=== PATIENT | male | born 1955 | race African-American/Black ===

== ENCOUNTER 2017-07-15 23:21 | Emergency (ER) | payer OTHER ==
[~2017-07-15] VITALS: Ht 172.7 cm; Wt 75.7 kg
[~2017-07-15 23:21] MED LIST: BENA1TAB18 PO; WARF1TAB47
--- NOTE | 2017-07-15 23:25 | NUR ---
To bed 2 a 62 yo male patient bb ra; "pace maker is not working." Patient is aaox3, no s/s of acute distress. Breathing even and unlabored. Placed on cardiac and vs monitoring. Patient denies any chest pain/pressure. No SOB. Denies any discomfort. Dr Owens at bedside to [facility].
--- NOTE | 2017-07-15 23:32 | NUR ---
eloy mathias; girlfriend; [phone] per girl medical [phone] juan nichols
--- NOTE | 2017-07-16 01:02 | NUR ---
IV removed. Catheter intact and site benign. Pressure and 4x4 applied to site. No bleeding noted. Patient discharged to home in stable condition. Written and verbal after care instructions given. Patient verbalizes understanding of instruction. Patient is ambulatory with steady gait, picked up no further complaints.
[2017-07-16 01:12] VITALS: BP 134/84
== END 2017-07-16 01:13 | disposition home or self-care (01) ==
LOC: ER 23:23
DX: S80.12XA Contusion of left lower leg, initial encounter (principal); F17.200 Nicotine dependence, unspecified, uncomplicated; I10 Essential (primary) hypertension; Z79.01 Long term (current) use of anticoagulants; Z86.73 Personal history of transient ischemic attack (TIA), and cerebral infarction without residual deficits; Z95.0 Presence of cardiac pacemaker; X58.XXXA Exposure to other specified factors, initial encounter; Y93.89 Activity, other specified; Y92.89 Other specified places as the place of occurrence of the external cause; Y99.9 Unspecified external cause status
CPT/HCPCS: 99283; A4606; Z7610

== ENCOUNTER 2019-10-31 05:38 | Emergency (ER) | payer MEDICARE, OTHER ==
[~2019-10-31] VITALS: Ht 172.7 cm; Wt 81.6 kg
--- NOTE | 2019-10-31 05:40 | NUR ---
PT BIBA FROM HOME FOR GEN. WEAKNESS, DIZZINESS WT COUGH AND CONGESTION. ALERT AND AWAKE, ABLE TO MAKE NEEDS KNOWN. ON ROOM AIR WT NO ACUTE DISTRESS. PLACED ON DAIRY SCIENCE TEACHER. SAFETY PRECAUTION NOTED. AWAITING ORDERS.
--- NOTE | 2019-10-31 06:00 | NUR ---
LEFT LOWER FOREARM GAUGE 18 INSERTED WT GOOD BLOOD RETURN. BLOOD DRAWN.
[2019-10-31] MEDS ORDERED: hydrALAZINE HCL IV 20 MG VIAL ONE ×2 (06:24→07:41)
[2019-10-31] MEDS ORDERED: hydrALAZINE HCL IV 20 MG VIAL IV ONE ×2 (06:30→08:00)
--- NOTE | 2019-10-31 06:30 | NUR ---
HYDRALAZINE GIVEN ORDERED FOR ELEVATED BP. WILL CONTINUE TO MONITOR.
[2019-10-31 06:31] LABS: BASOPHILS % (AUTO) 0.8 % (0.0-2.0); EOSINOPHILS % (AUTO) 1.1 % (0.0-6.0); HEMATOCRIT 46 % (39-51); HEMOGLOBIN 15.4 g/dL (13.5-17.5); LYMPHOCYTES # (AUTO) 1.2 /CMM (0.8-4.8); LYMPHOCYTES % (AUTO) 27.7 % (20.0-44.0); MEAN CORPUSCULAR HGB CONC 34 g/dl (31.0-36.0); MEAN CORPUSCULAR VOLUME 95 fL (80-96); MONOCYTES # (AUTO) 0.3 /CMM (0.1-1.30); MONOCYTES % (AUTO) 7.5 % (2.0-12.0); NEUTROPHILS # (AUTO) 2.6 /CMM (1.8-8.9); NEUTROPHILS % (AUTO) 62.9 % (43.0-81.0); PLATELET COUNT (AUTO) 150 /CMM (150-450); RED BLOOD CELL COUNT(AUTO) 4.82 MIL/uL (4.5-6.0); WHITE BLOOD COUNT (AUTO) 4.2 K/uL (4.3-11.0)
--- NOTE | 2019-10-31 06:32 | NUR ---
RAPID INFLUENZA SENT TO LAB.
[2019-10-31 06:37] LABS: CALCIUM, SERUM 8.1 mg/dL (8.5-10.1); CARBON DIOXIDE 23 mmol/L (21-32); CHLORIDE 107 mmol/L (98-107); CREATININE 1.2 mg/dL (0.6-1.3); GLUCOSE 107 mg/dL (74-106); POTASSIUM 3.5 mmol/L (3.5-5.1); SODIUM SERUM 139 mmol/L (136-145); UREA NITROGEN, BLOOD 14 mg/dL (7-18)
[2019-10-31] MEDS ORDERED: LIDOCAINE 2% JEL UROJET 10 ML MM ONE ×2 (06:44→07:30)
[2019-10-31 06:46] LABS: BILIRUBIN,DIRECT 0.3 mg/dL (0.0-0.2); BILIRUBIN,TOTAL 0.9 mg/dL (0.2-1.0)
[2019-10-31 06:47] LABS: ALBUMIN 3.3 g/dL (3.4-5.0); TOTAL PROTEIN, SERUM 7.3 g/dL (6.4-8.2)
--- NOTE | 2019-10-31 07:00 | NUR ---
COLLECTED URINE SPECIMEN VIA STRAIGHT CATH. AND SENT TO LAB.
[2019-10-31 07:06] LABS: APPEARANCE,URINE SL CLOUDY (CLEAR); BILIRUBIN,URINE NEGATIVE (NEGATIVE); BLOOD, URINE TRACE-INTA Ery/uL (NEGATIVE); COLOR,URINE YELLOW (YELLOW); KETONES,URINE NEGATIVE (NEGATIVE); LEUKOCYTE ESTERASE ,URINE NEGATIVE (NEGATIVE); NITRITE, URINE NEGATIVE (NEGATIVE); PH,URINE 5.5 (5.0-8.0); PROTEIN,URINE TRACE mg/dl (NEGATIVE); UGLUCOSE NEGATIVE (NEGATIVE)
[2019-10-31 07:11] LABS: BACTERIA,URINE Rare /HPF (None Seen); SQUAMOUS EPITHELIAL CELL,UR Moderate /HPF (None Seen); WBC,URINE NONE SEEN /HPF (0-3)
--- NOTE | 2019-10-31 07:27 | NUR ---
RELAYED RJ=256/88, HR=[address] AREVALO. AWAITING FURTHER ORDERS. PT REMAINED ALERT AND AWAKE. ABLE TO MAKE NEEDS KNOWN. WILL ENDORSED TO DAY SHIFT FOR CONTINUITY OF CARE.
--- NOTE | 2019-10-31 07:41 | NUR ---
SPOKED TO DR.BURROWS CARLOS, WILL GIVE HYDRALAZINE AND WILL EVALUATE AFTER 1 HOUR FOR ADMISSION.
--- NOTE | 2019-10-31 08:42 | NUR ---
CLINICALS FAXED TO [facility] ([place]) FAX #: [phone] PHONE #: [phone]
--- NOTE | 2019-10-31 09:11 | NUR ---
PATIENT WILL BE TRANSFERRED TO [facility], BED ASSIGNMENT IS 201A RN NAME IS ANAY. NUMBER FOR REPORT: [phone]
--- NOTE | 2019-10-31 09:57 | NUR ---
REPORT GIVEN TO ANAY MONROE
--- NOTE | 2019-10-31 10:45 | NUR ---
REPORT GIVEN TO HYDRAULIC JACK OPERATOR. VITALS STABLE. HR 84 BP OF 148/86 R 27 SPO2 97. PATIENT A/OX2-3 VERBALLY RESPONSIVE, IN STABLE CONDITION. NEEDS ATTENDED.
[2019-10-31 10:46] VITALS: BP 148/86
== END 2019-10-31 10:48 | disposition short-term general hospital (02) ==
LOC: ER 05:40
DX: I10 Essential (primary) hypertension (principal); R53.1 Weakness; Z95.0 Presence of cardiac pacemaker; Z86.73 Personal history of transient ischemic attack (TIA), and cerebral infarction without residual deficits; Z79.01 Long term (current) use of anticoagulants; Z79.899 Other long term (current) drug therapy
CPT/HCPCS: 36415; 71045; 80048; 80076; 81001; 83605; 84145; 84484; 85025; 85730; 87040 ×2; 87086; 87804 ×2; 93005 ×2; 96374; 96376; 99285; J0360 ×2; J3490; 81000-TC

== ENCOUNTER 2020-10-04 18:48 | Inpatient (IN) | payer MEDICAID, MEDICARE ==
[~2020-10-04] VITALS: Ht 172.7 cm; Wt 69.4 kg
[~2020-10-04 18:48] MED LIST changes: +WARF1TAB; -WARF1TAB47
--- NOTE | 2020-10-04 19:21 | NUR ---
MATT (GIRLFRIEND) CONTACT INFORMATION: [phone]
--- NOTE | 2020-10-04 20:18 | NUR ---
Per Patient's girlfriend, Queenie Patel, states that she called Pt's primary doctor, and she states that he was stumbling all over the place, so the primary doctor told her to call 911. Yesterday and Today the patient was not cooperate, per patient. Dr. Eliza Olea is primary.
--- NOTE | 2020-10-04 20:42 | NUR ---
[facility] .
--- NOTE | 2020-10-04 20:56 | NUR ---
PATIENT TAKEN TO THE CT.
--- NOTE | 2020-10-04 21:00 | NUR ---
ATTEMPTED TO CONTACT PT'S SISTER FOR MEDICATION LIST. NO ANSWER, LEFT MESSAGE
[2020-10-04 21:14] LABS: BILIRUBIN,URINE NEGATIVE (NEGATIVE); BLOOD, URINE NEGATIVE Ery/uL (NEGATIVE); COLOR,URINE YELLOW (YELLOW); LEUKOCYTE ESTERASE ,URINE NEGATIVE (NEGATIVE); NITRITE, URINE NEGATIVE (NEGATIVE); PROTEIN,URINE NEGATIVE (NEGATIVE); UGLUCOSE NEGATIVE (NEGATIVE)
[2020-10-04 21:39] LABS: BASOPHILS # (AUTO) 0.1 /CMM (0.0-0.2); BASOPHILS % (AUTO) 1.4 % (0.0-2.0); EOSINOPHILS % (AUTO) 0.9 % (0.0-6.0); HEMATOCRIT 50 % (39-51); HEMOGLOBIN 16.1 g/dL (13.5-17.5); LYMPHOCYTES # (AUTO) 2.2 /CMM (0.8-4.8); LYMPHOCYTES % (AUTO) 38.1 % (20.0-44.0); MEAN CORPUSCULAR HGB CONC 32 g/dl (31.0-36.0); MEAN CORPUSCULAR VOLUME 97 fL (80-96); MONOCYTES # (AUTO) 0.4 /CMM (0.1-1.30); MONOCYTES % (AUTO) 6.7 % (2.0-12.0); NEUTROPHILS # (AUTO) 3.1 /CMM (1.8-8.9); NEUTROPHILS % (AUTO) 52.9 % (43.0-81.0); PLATELET COUNT (AUTO) 170 /CMM (150-450); RED BLOOD CELL COUNT(AUTO) 5.21 MIL/uL (4.5-6.0); WHITE BLOOD COUNT (AUTO) 5.8 K/uL (4.3-11.0)
[2020-10-04 21:49] LABS: ALCOHOL, BLOOD < 3 mg/dL (0-0); CALCIUM, SERUM 8.8 mg/dL (8.5-10.1); CREATININE 1.3 mg/dL (0.6-1.3); MAGNESIUM 2.1 mg/dL (1.8-2.4)
--- NOTE | 2020-10-04 21:52 | NUR ---
ATTEMPTED TO CONTACT PT'S GIRLFRIEND FOR MEDICATION LIST. NO ANSWER, LEFT MESSAGE
[2020-10-04 21:54] LABS: ALBUMIN 3.3 g/dL (3.4-5.0); BILIRUBIN,DIRECT 0.3 mg/dL (0.0-0.2); BILIRUBIN,TOTAL 0.6 mg/dL (0.2-1.0); TOTAL PROTEIN, SERUM 7.8 g/dL (6.4-8.2)
[2020-10-04] MEDS ORDERED: CARV25TA2 PO (22:06)
[2020-10-04] MEDS ORDERED: ATOR40TA PO (22:06)
[2020-10-04] MEDS ORDERED: LOSA50TA39 PO (22:06)
--- NOTE | 2020-10-04 22:36 | NUR ---
PAGED DR. STALEY
--- NOTE | 2020-10-04 22:37 | NUR ---
CALLED NURSING SUP FOR BED
--- NOTE | 2020-10-04 22:41 | NUR ---
DR. FUENTES SPEAKING WITH DR. STALEY REGARDING ADMISSION
[2020-10-04] MEDS ORDERED: ACETAMINOPHEN 325 MG TABLET PO PRN (23:00)
[2020-10-04] MEDS ORDERED: HYDROCODONE/APAP 5/325MG TABLET PO PRN (23:00)
[2020-10-04] MEDS ORDERED: Z GUARD REMEDY 2 OZ OINT TP PRN (23:00)
[2020-10-04] MEDS ORDERED: MAGNESIUM HYDROXIDE 30 ML UDC PO PRN (23:00)
[2020-10-04] MEDS ORDERED: ONDANSETRON HCL/PF 4 MG/2 ML VIAL IVP PRN (23:00)
[2020-10-04] MEDS ORDERED: MAG HYDROX/AL HYDROX/SIMETH 30 ML UDC PO PRN (23:00)
[2020-10-04] MEDS ORDERED: ZOLPIDEM TARTRATE 5 MG TABLET PO PRN (23:00)
--- NOTE | 2020-10-04 23:03 | NUR ---
BED ASSIGNMENT 323-2
--- NOTE | 2020-10-04 23:16 | NUR ---
REPORT GIVEN TO RUEL MONROE FOR ABEL.
--- NOTE | 2020-10-04 23:24 | NUR ---
PATIENT'S BLOOD PRESSURE IS HIGH, MD NOTIFIED.
[2020-10-04] MEDS ORDERED: hydrALAZINE HCL IV 20 MG VIAL ONE (23:26)
--- NOTE | 2020-10-04 23:29 | NUR ---
NOTED HYPERTENSION. DR. STALEY MADE AWARE
[2020-10-04] MEDS ORDERED: hydrALAZINE HCL IV 20 MG VIAL IV PRN (23:30)
--- NOTE | 2020-10-05 01:00 | NUR ---
SPRAYER OPERATOR NOTE: RECEIVED PATIENT FROM ER, NO ACUTE DISTRESS NOTED. BREATHING EVEN AND UNLABORED, NO SOB NOTED. IV TO LEFT HAND IN PLACE. ORIENTED PATIENT TO ROOM AND USE OF CALL LIGHT. BED LOCKED AND IN LOWEST POSITION, CALL LIGHT IN REACH. WILL CONTINUE TO MONITOR.
[2020-10-05] MEDS: hydrALAZINE HCL 25 MG TABLET PO PRN ×2 (02:17→07:49)
[2020-10-05] MEDS: ENOXAPARIN SODIUM 40 MG/0.4 ML DISP.SYRIN SQ SCH ×2 (02:18→22:31)
--- NOTE | 2020-10-05 02:30 | NUR ---
DRIER OPERATOR NOTE: PATIENT NOTED WITH ELEVATED BLOOD PRESSURE, RECEIVED ORDER FOR HYDRALAZINE 25MG ORAL, ORDER NOTED AND CARRIED OUT. HYDRALAZINE 25MG 1 TAB ORAL GIVEN PER MD ORDER. WILL CONTINUE TO MONITOR.
[2020-10-05 04:00] VITALS: BP 168/113
--- NOTE | 2020-10-05 06:15 | NUR ---
ADJUNCT HISTORY INSTRUCTOR NOTE: PATIENT RESTING IN BED, NO ACUTE DISTRESS NOTED. BREATHING EVEN AND UNLABORED, NO SOB NOTED. IV TO LEFT HAND IN PLACE. BED LOCKED AND IN LOWEST POSITION, CALL LIGHT IN REACH. WILL ENDORSE TO DAY NURSE TO CONTINUE WITH PLAN OF CARE.
--- NOTE | 2020-10-05 07:29 | NUR ---
RADIO TIME SALESPERSON OPENING NOTES RECEIVED PATIENT RESTING IN BED, A/OX2-3, ON RA BREATHING EVEN AND UNLABORED, NO S/S OF SOB NO ACUTE RESPIRATORY DISTRESS NOTED. IV TO LEFT HAND IN PLACE, PATIENT ON TELEMONITOR READING SR, AND PACING. PATIENT HAS A PACEMAKER IN PLACE. PT IS ABLE TO AMBULATE, USING WALKER. BED IS AT LOWEST POSITION AND LOCKED WITH SIDE RAILS UPX2 AND CALL LIGHT IN REACH. ALL SAFETY MEASURES IN PLACE , WILL CONTINUE TO MONITOR PATIENT THROUGH OUT SHIFT.
[2020-10-05 07:34] LABS: BASOPHILS % (AUTO) 0.5 % (0.0-2.0); EOSINOPHILS % (AUTO) 0.7 % (0.0-6.0); HEMATOCRIT 49 % (39-51); HEMOGLOBIN 16.3 g/dL (13.5-17.5); LYMPHOCYTES # (AUTO) 2.7 /CMM (0.8-4.8); LYMPHOCYTES % (AUTO) 43.5 % (20.0-44.0); MEAN CORPUSCULAR HGB CONC 33 g/dl (31.0-36.0); MEAN CORPUSCULAR VOLUME 94 fL (80-96); MONOCYTES # (AUTO) 0.4 /CMM (0.1-1.30); MONOCYTES % (AUTO) 6.3 % (2.0-12.0); NEUTROPHILS # (AUTO) 3.1 /CMM (1.8-8.9); PLATELET COUNT (AUTO) 190 /CMM (150-450); RED BLOOD CELL COUNT(AUTO) 5.22 MIL/uL (4.5-6.0); WHITE BLOOD COUNT (AUTO) 6.3 K/uL (4.3-11.0)
[2020-10-05] MEDS: PANTOPRAZOLE 40 MG TABLET.DR PO SCH (07:49)
[2020-10-05 08:00] VITALS: BP 187/114
[2020-10-05 08:02] LABS: CALCIUM, SERUM 8.8 mg/dL (8.5-10.1); CREATININE 1.2 mg/dL (0.6-1.3); MAGNESIUM 2.1 mg/dL (1.8-2.4); PHOSPHORUS 2.9 mg/dL (2.5-4.9); POTASSIUM 3.5 mmol/L (3.5-5.1)
[2020-10-05] MEDS: LOSARTAN POTASSIUM 50 MG TABLET PO SCH ×2 (09:46→16:49)
[2020-10-05] MEDS: ASPIRIN 81 MG TAB.CHEW PO SCH (09:46)
[2020-10-05] MEDS: ATORVASTATIN 40 MG TABLET PO SCH (09:46)
[2020-10-05] MEDS: CARVEDILOL 12.5 MG TABLET PO SCH ×2 (09:47→16:49)
[2020-10-05 10:30] LABS: THYROID STIMULATING HORMONE 2.578 uIU/mL (0.358-3.74)
[2020-10-05 16:00] VITALS: BP 154/94
[2020-10-05] MEDS: CLOPIDOGREL BISULFATE 75 MG TABLET PO SCH (16:48)
--- NOTE | 2020-10-05 19:52 | NUR ---
RN MS CLOSING NOTES PATIENT RESTING IN BED, A/OX2-3, ON RA BREATHING EVEN AND UNLABORED, NO S/S OF SOB NO ACUTE RESPIRATORY DISTRESS NOTED. IV TO LEFT HAND IN PLACE, PATIENT HAS A PACEMAKER IN PLACE. PT IS ABLE TO AMBULATE, USING WALKER. BED IS AT LOWEST POSITION AND LOCKED WITH SIDE RAILS UPX2 AND CALL LIGHT IN REACH. ALL SAFETY MEASURES IN PLACE , WILL ENDORSE TO ONCOMING SHIFT.
[2020-10-05 20:00] VITALS: BP 166/94
[2020-10-05 20:08] LABS: BILIRUBIN,URINE NEGATIVE (NEGATIVE); BLOOD, URINE NEGATIVE Ery/uL (NEGATIVE); COLOR,URINE DARK YELLOW (YELLOW); LEUKOCYTE ESTERASE ,URINE NEGATIVE (NEGATIVE); NITRITE, URINE NEGATIVE (NEGATIVE); PH,URINE 5.5 (5.0-8.0); PROTEIN,URINE TRACE mg/dl (NEGATIVE); UGLUCOSE 100 MG/DL mg/dL (NEGATIVE)
[2020-10-05 20:35] LABS: BACTERIA,URINE Rare /HPF (None Seen); MUCUS,URINE Moderate /LPF (None Seen); RBC,URINE 0-2 /HPF (0-2); SQUAMOUS EPITHELIAL CELL,UR Rare /HPF (None Seen); WBC,URINE 0-2 /HPF (0-3)
[2020-10-05 20:54] VITALS: BP 166/94
--- NOTE | 2020-10-05 22:00 | NUR ---
RN NOTES REPORT GIVEN LUIS ANGEL HUGHES RN. PATIENT IS RESTING COMFORTABLY, SAFETY MEASURES IN PLACE, ASPIRATION PRECAUTION EMPHASIZED. CALL LIGHT WITHIN EASY REACH. WILL CONTINUE TO MONITOR PATIENT.
--- NOTE | 2020-10-06 00:01 | NUR ---
RN NOTE RECEIVED PATIENT IN BED, CONFUSED. PATIENT IN NO S/SX OF ACUTE DISTRESS AT THIS TIME. NO SOB NOTED. PATIENT'S BREATHING IS EVEN AND UNLABORED. PATIENT IS SATURATING >95% ON ROOM AIR. NOTED IV SITE AT RFA 24G, PATENT AND FLUSHING WELL, NO S/S OF INFECTION OR INFILTRATION. PATIENT IS CONTINENT WITH URINAL AT BEDSIDE. PATIENT HAS BEEN TRYING TO GET UP FROM BED. KEPT REMINDING PATIENT HE IS AT RISK FOR FALLS AND TO STAY IN BED. SAFETY MEASURES HAVE BEEN PROVIDED AND IMPLEMENTED. PATIENT BED ALARM IS ON. HEAD OF BED ELEVATED. BED IS LOCKED, IN LOWEST POSITION AND SIDE RAILS UP. CALL LIGHT WITHIN REACH OF THE PATIENT. WILL CONTINUE TO MONITOR AND REASSESS FOR ANY CHANGES.
--- NOTE | 2020-10-06 06:14 | NUR ---
RN NOTES ALL NEEDS ATTENDED AND MET. ABLE TO REST AND SLEPT AT INTERVALS. SAFETY MEASURES IN PLACE, ASPIRATION PRECAUTION EMPHASIZED. DENIES ANY PAIN AT THIS TIME. PATIENT RESTING IN BED,ON RA BREATHING EVEN AND UNLABORED, NO S/S OF SOB NO ACUTE RESPIRATORY DISTRESS NOTED. IV TO RIGHT FOREARM G#[address], PATIENT HAS A PACEMAKER IN PLACE. PT IS ABLE TO AMBULATE, USING WALKER. BED IS AT LOWEST POSITION AND LOCKED WITH SIDE RAILS UPX2 AND CALL LIGHT IN REACH. ALL SAFETY MEASURES IN PLACE , ALL NEEDS ANTICIPATED. WILL ENDORSETO AM NURSE FOR CONTINUITY OF CARE.
[2020-10-06] MEDS: PANTOPRAZOLE 40 MG TABLET.DR PO SCH (06:50)
--- NOTE | 2020-10-06 07:30 | NUR ---
RECEIVED PT. IN AM ALERT AND ORIENTED X2.SKIN WARM AND DRY.VS STABLE.SIDE RAILS UP .ATTEMPTING TO GET OOB VERY FREQ. BED ALARM ON.HEP LOCK IN PLACE.FAMILY CALLING IN FREQ.
[2020-10-06 08:00] VITALS: BP 171/95
[2020-10-06] MEDS: ASPIRIN 81 MG TAB.CHEW PO SCH (09:05)
[2020-10-06] MEDS: CARVEDILOL 12.5 MG TABLET PO SCH ×2 (09:06→18:08)
[2020-10-06] MEDS: CLOPIDOGREL BISULFATE 75 MG TABLET PO SCH (09:07)
[2020-10-06] MEDS: LOSARTAN POTASSIUM 50 MG TABLET PO SCH (09:07)
[2020-10-06] MEDS: ATORVASTATIN 40 MG TABLET PO SCH (09:07)
[2020-10-06] MEDS: AMLODIPINE BESYLATE 5 MG TABLET PO SCH (09:09)
[2020-10-06] MEDS ORDERED: LEVOFLOXACIN 500 MG /D5W 100ML 500 MG in PREMIX 1 EA IV SCH (10:00)
--- NOTE | 2020-10-06 10:00 | NUR ---
STROKE RN CALLING.DOCUMENTATION STARTED.
--- NOTE | 2020-10-06 10:15 | NUR ---
WEAKNESS ON RT. SIDE UPPER AND LOWER LIMBS.SPEECH TX IN TO SEE PT.DIET CHANGED TO CHOPPED WITH NECTAR THICK CONSISTENCY.PT. PLEASANT,BUT CONT. TO GET OOB FREQ.
--- NOTE | 2020-10-06 11:32 | NUR ---
Skilled Nursing Facility Counselor consult requested by Alok Kay as patient has a history of stroke. Patient was easily arousable by verbal cues. Patient requested for SS to return to speak with him. SW will follow-up with the patient and patient's next of kin to gather more information. SW remains available for all needs regarding this patient.
[2020-10-06] MEDS: hydrALAZINE HCL 50 MG TABLET PO SCH ×3 (11:41→18:07)
[2020-10-06] MEDS: VALSARTAN 80 MG TABLET PO SCH (14:00)
[2020-10-06] MEDS: NITROGLYCERIN 30 GM TUBE TP SCH ×2 (14:00→21:32)
--- NOTE | 2020-10-06 15:21 | NUR ---
Family Contact: MARIEL followed up and called the pt.s girlfriend, Queenie Patel [phone] to gather collateral information. Queenie stated that the pt. resides with her and her son, Sivakumar Patel at [address] [place] [address]. Per Queenie, the pt. suffered the first stroke in 2002 and has suffered milder strokes after that. Per Queenie, the pt. has slurred speech due to stroke and has difficulty with ADLs. Per Queenie she and her son take care of the patient. MARIEL explored pt.s support system. Queenie stated that the pt.s sister, Naomi Ribera [phone] is involved. Per Queenie, the pt. does not have IHSS. MARIEL provided IHSS phone number to apply [phone]). Per Queenie, the pt. is able to ambulate by using a front wheel walker or rollator walker he has at home. Per Queenie, they live on the second floor of an apt. complex and the pt. can walk up slowly. Per Queenie, she does not have any concerns with the pt.s emotional status. Per Queenie, the pt. has never expressed SI/HI or hallucinations. Per Queenie, the pt. has no hx. of mental health issues. Per Queenie, the pt. drinks 1-2 beers but nothing concerning. Per Queenie, the pt. smokes 4-5 cigarettes per day. Per Queenie the pt received $931 in SSI benefits. Queenie stated that she would like the pt. to be discharge to an ARU or SNF to receive PT, OT, ST as needed. Queenie stated the pt. can be discharged to home after going to rehab. MARIEL FLOYD provided the following resources: IH [id number] Toll Free Number [phone] IHSS ([phone]) Local Number [phone] IHSS ([phone]) OR IHSS Helpline Mon-Fri from 8AM - 5PM IHSS Helpline (option 2 from main [facility] [phone] in [place] Family Caregiver [place] [phone] www.caregiver.org [place] Caregiver Resources Center / Family Support [phone] www.[facility].org Conservator & Guardianship Ebony Hinojosa Legal Services [phone] Home Safety Modifications and Equipment -National Seating and Mobility [phone] Life Alert [phone] Kiera Meals on Wheels [phone] ACCESS Transportation Services [phone] MARIEL placed a copy of Empowerment after Stroke in pt.s chart for the pt. and his girlfriend, Queenie Patel to review post discharge. MARIEL will be available as needed to support pt. and their family.
[2020-10-06 16:00] VITALS: BP 126/76
--- NOTE | 2020-10-06 18:00 | NUR ---
NO CHANGE IN STATUS.
[2020-10-06 20:00] VITALS: BP 122/71
[2020-10-06] MEDS: ENOXAPARIN SODIUM 40 MG/0.4 ML DISP.SYRIN SQ SCH (21:40)
[2020-10-07 08:00] VITALS: BP 157/68
[2020-10-07 08:57] LABS: CALCIUM, SERUM 8.6 mg/dL (8.5-10.1); CREATININE 1.2 mg/dL (0.6-1.3); POTASSIUM 4.7 mmol/L (3.5-5.1)
[2020-10-07] MEDS ORDERED: AMLO-212 PO (09:28)
[2020-10-07] MEDS ORDERED: ASPI-1169 PO (09:28)
[2020-10-07] MEDS ORDERED: Levofloxacin (250MG) PO (09:31)
[2020-10-07] MEDS: ASPIRIN 81 MG TAB.CHEW PO SCH (09:52)
[2020-10-07] MEDS: VALSARTAN 80 MG TABLET PO SCH (09:53)
[2020-10-07] MEDS: ATORVASTATIN 40 MG TABLET PO SCH (09:53)
[2020-10-07] MEDS: CARVEDILOL 12.5 MG TABLET PO SCH ×2 (09:53→17:31)
[2020-10-07] MEDS: AMLODIPINE BESYLATE 5 MG TABLET PO SCH (09:54)
[2020-10-07] MEDS: CLOPIDOGREL BISULFATE 75 MG TABLET PO SCH (09:54)
[2020-10-07] MEDS: hydrALAZINE HCL 50 MG TABLET PO SCH ×3 (09:54→17:31)
[2020-10-07] MEDS: PANTOPRAZOLE 40 MG TABLET.DR PO SCH (10:02)
[2020-10-07] MEDS: LEVOFLOXACIN (250MG) 250 MG TABLET PO SCH (10:02)
[2020-10-07] MEDS: NITROGLYCERIN 30 GM TUBE TP SCH ×2 (10:05→22:18)
--- NOTE | 2020-10-07 15:15 | NUR ---
RN -NOTES CHIEF CLINICAL DIETITIAN ASSISTED PATIENT TO THE THE BATHROOM TO VOID USING WALKER AND TO HIS BED AROUND 1310 . AT 1515 HIS BED WAS ALARMING AND CHIEF CLINICAL DIETITIAN FOUND THE PATIENT SITTING IN THE FLOOR NEXT TO HIS BED, HEAD TO TOE ASSESSMENT DONE TO INJURY NOTED. PATIENT STATED" I TRIED TO GET UP AND I JUST MISS MY BED TO SIT, I'M FINE, DENIES ANY DISCOMFORT OR PAIN AT THIS TIME. PATIENT WAS ASSISTED BACK IN HIS BED WITH ANOTHER MALE STAFF. PATIENT IS ABLE TO FOLLOW DIRECTIONS AND ANSWER QUESTIONS. AT THIS TIME.WILL CONT. MONITORING FOR SAFETY AND ANY ADVERSE CHANGES.VITAL SIGNS FOLLOWS BP 136/76,PULSE 80 AND RESP. 20 O2 SAT 96 % RA
--- NOTE | 2020-10-07 15:25 | NUR ---
MARIEL completed Post Stroke Depression assessment with the pt.: Upon SS consult, the pt. presented in his bed awake and was receptive to meeting with SW. The pt. made appropriate eye contact and appears well-groomed. The pt. is calm and cooperative throughout interview. The pt.'s speech is slurred, slow and pt. was drooling. Pt.'s motor skills are impaired. The pt.'s mood is depressed with flat affect. The pt. denies SI/HI and denies hallucinations. The pt. scored a 10 on the MPHQ9. MARIEL called and notified clerk secretary, Monica that the pt. requires a psych consult due to high score. Monica state she would inform charge nurse, Natalia.MARIEL placed the following resources in the pt.'s chart: ABUSE PREVENTION: ELDER ABUSE HOTLINE (28/05) ; ADULT PROTECTIVE SERVICES HOTLINE ; LONG-TERM CARE [facility]: [facility] Region; AREA ON AGING (HOTLINE) ADULT DAY HEALTH CARE CARE CENTERS: Private pay or [facility] funded adult day care: [facility] ; [facility] , [place]; Community Integration Services , [place]; [facility] , [facility] Adult Day Health Care , [place]; [facility] Adult [facility] Care , [place]; [facility] Adult [facility] Center , [place]; [facility] , [facility] Adult Center , [place] ALZHEIMERS DISEASE/DEMENTIA: Alzheimers Association Helpline ; [facility] www.alz.org/[facility]; [facility] Department of Aging www.lacity.org; Family Caregiver [place] www.caregiver.org; [place] Caregiver Resources Center/Family Support www.[facility].org CANCER RESOURCES: [place] Cancer Society www.cancer.org; Cancer Support Community www.CancerSupportVvsb.org: CancerCare www.cancercare.org; [facility] Cancer Support [place] www.[facility].org COMMUNITY HEALTH ASSOCIATIONS AARP www.aarp.org; ALS Association ; (ask for Ashley) www.als.org; [place] Diabetes Association www.diabetes.org; [place] Heart Association www.heart.org; [place] Lung Association www.lungusa.org; [place] Parkinson Disease Association www.apdaparkinson.org; Jamaican Avimor , www.redcross.org; Arthritis Foundation www.arthritis.org; Crohns & Colitis Foundation of Jamaican www.ccfa.org/chapters/clair; National Multiple Sclerosis Society www.nationalmssociety.org; Myasthenia Gravis Foundation www.myasthenia-ca.org; National Stroke Association www.stroke.org CONSERVATORSHIP & GUARDIANSHIP AAR ; [facility] Legal Services ; Center for Health Care Rights ; Eldercare Information and Referral ; Rn Night Foundation [facility]: [facility] Bar Referral Service [facility] Legal Services Office of the Public Guardian [place] EYESIGHT DISORDER RESOURCES [place] Macular Degeneration Foundation ; Braille [place] www.brailleinstitute.org Grief and Bereavement Resources: [facility] , [place]; [facility] ; THE HOPE Connection , [facility] ; [facility] Bereavement Center , [place] HEARING DISORDER RESOURCES [place] Telephone Access [facility] Deaf and Disabled Telecommunications Program www.ddtp.[facility].ca.gov; [facility]Rx [facility] Centers ([place]) ; Better Hearing Systems , [place]; GLAD ([facility] Agency on Deafness) V/ TTY; Auto Technician , [place]; S[place]y Hearing Foundation -low income hearing aid assistance www.Kanjoyahearingfoundation.org ; [facility] , [place] HELP AT HOME CAREGIVER SUPPORT In Home Support Services (Must have Medi-Emanuel to be eligible) *Ask for a list of agencies that provide services to assist with care in the home. Local Senior Centers also have listings of care providers. HOME SAFETY MODIFICATIONS AND EQUIPMENT Senior centers have additional referrals.DC Housing and Community Investment Dept. Handyworker Program (low income) or Visit http://hcidla.lacity.org/rqc-jcdpdk-ca National Seating and Mobility and/or ; Forever Active www.foreverKP Corp.Groopt; Stay Home Safe www.Stayhomesafe.com SW placed a copy of "Empowerment after Stroke" in pt.s chart for the pt. and his girlfriend, Queenie Patel to review post discharge. This SW or other SW will be available to support the pt. and their family as needed.
[2020-10-07 16:00] VITALS: BP 147/85
--- NOTE | 2020-10-07 16:12 | NUR ---
RN-NOTES DR. FERNANDO MADE AWARE OF PATIENT WAS FOUND ON THE FLOOR SITTING AROUND 1515, WITH T.O ORDER OF CT OF THE HEAD WO CONTRAST. NOTED AND CARRIED OUT. PATIENT MATT ) ALSO MADE AWARE OF THE INCIDENT.
--- NOTE | 2020-10-07 19:30 | NUR ---
MS/RN OPENING NOTES RECEIVED PATIENT RESTING IN CARLIN CHAIR. PATIENT IS ALERT AND ORIENTED X 1. NO SIGNS OF DISTRESS NOTED. BREATHING IS EVEN AND UNLABORED. NO SIGNS OF SOB OR RESPIRATORY DISTRESS NOTED. IV ACCESS ON RIGHT FOREARM INTACT. PATIENT BEING PROVIDED FLUIDS AND SNACKS. FALL PRECAUTIONS ARE IN PLACE. WILL CONTINUE TO MONITOR PATIENT THROUGH OUT SHIFT.
--- NOTE | 2020-10-07 19:58 | NUR ---
RN-NOTES PATIENT UP IN THE CARLIN CHAIR AWAKE,ALERT ABLE TO FOLLOW SIMPLE COMMAND,NO ACUTE DISTRESS NOTED. IV LINE INTACT NO S/SX OF COMPLICATION NOTED. ENDORSE TO INCOMING NURSE FOR CONTINUITY OF CARE.
--- NOTE | 2020-10-07 21:30 | NUR ---
MS/RN NOTES PATIENT NO LONGER IN CARLIN CHAIR, PATIENT IN BED. NOT SIGNS OF DISTRESS NOTED. SAFETY MEASURES ARE IN PLACE, BED IS LOCKED AND PLACED IN THE LOW POSITION, SIDE RAILS UP X 3. CALL LIGHT IS WITHIN REACH. WILL CONTINUE TO MONITOR.
[2020-10-07] MEDS: ENOXAPARIN SODIUM 40 MG/0.4 ML DISP.SYRIN SQ SCH (22:20)
--- NOTE | 2020-10-08 06:20 | NUR ---
MS/RN CLOSING NOTES PATIENT RESTING IN BED. PATIENT IS ALERT AND ORIENTED X 1. NO SIGNS OF DISTRESS NOTED. BREATHING IS EVEN AND UNLABORED. NO SIGNS OF SOB OR RESPIRATORY DISTRESS NOTED. IV ACCESS ON RIGHT FOREARM INTACT. PATIENT HAS 1:1 SITTER. PATIENT MAKING ATTEMPTS THROUGH OUT SHIFT TO GET OUT OF BED. PATIENT REMAINS INJURY FREE. ALL NEEDS HAVE BEEN MET DURING SHIFT. FALL PRECAUTIONS ARE IN PLACE. SAFETY MEASURES ARE IN PLACE, BED IS LOCKED AND PLACED IN THE LOW POSITION, SIDE RAILS UP X 3, CALL LIGHT WITHIN REACH. WILL ENDORSE CARE TO DAY SHIFT NURSE.
--- NOTE | 2020-10-08 07:35 | NUR ---
RN Initial Notes: Received pt. asleep in bed, breathing is even and unlabored. Sitter at the side, no distress noted and will continue to monitor.
[2020-10-08] MEDS: CLOPIDOGREL BISULFATE 75 MG TABLET PO SCH (08:36)
[2020-10-08] MEDS: ASPIRIN 81 MG TAB.CHEW PO SCH (08:36)
[2020-10-08] MEDS: ATORVASTATIN 40 MG TABLET PO SCH (08:36)
[2020-10-08] MEDS: LEVOFLOXACIN (250MG) 250 MG TABLET PO SCH (08:37)
[2020-10-08] MEDS: PANTOPRAZOLE 40 MG TABLET.DR PO SCH (08:37)
[2020-10-08] MEDS: AMLODIPINE BESYLATE 5 MG TABLET PO SCH (08:37)
[2020-10-08] MEDS: VALSARTAN 80 MG TABLET PO SCH (08:38)
[2020-10-08] MEDS: CARVEDILOL 12.5 MG TABLET PO SCH ×2 (08:39→16:26)
[2020-10-08] MEDS: hydrALAZINE HCL 50 MG TABLET PO SCH ×3 (08:40→16:25)
[2020-10-08] MEDS: NITROGLYCERIN 30 GM TUBE TP SCH (09:17)
--- NOTE | 2020-10-08 15:53 | NUR ---
Fred Kay made aware of the x-ray result and said for D/C home tomorrow with home health.
[2020-10-08 16:26] VITALS: BP 142/86
--- NOTE | 2020-10-08 17:33 | NUR ---
Dr. Ibarra gave an order to discharge pt. to home with home health. Pt. is without distress and belongings ready.
--- NOTE | 2020-10-08 17:40 | NUR ---
Pt. left the unit via a wheelchair with belongings and wheeled by staff to the lobby. Left without distress and picked up by his . V/S taken: BP124/84, SC 69, RR 18, temp 97.8 and oxygen sat 97%.
== END 2020-10-08 17:40 | disposition home health service (06) | DRG 139 ==
LOC: ER 18:55 → TELE 23:06 → MED 10-05 12:24
PROVIDERS: ADMIT Student in an Organized Health Care Education/Training Program; ATTEND Internal Medicine
DX: J15.9 Unspecified bacterial pneumonia (principal); E44.1 Mild protein-calorie malnutrition; G40.909 Epilepsy, unspecified, not intractable, without status epilepticus; I25.10 Atherosclerotic heart disease of native coronary artery without angina pectoris; G93.41 Metabolic encephalopathy; J20.9 Acute bronchitis, unspecified; N17.0 Acute kidney failure with tubular necrosis; F01.50 Vascular dementia, unspecified severity, without behavioral disturbance, psychotic disturbance, mood disturbance, and anxiety; F17.210 Nicotine dependence, cigarettes, uncomplicated; I10 Essential (primary) hypertension; Z86.74 Personal history of sudden cardiac arrest; M19.90 Unspecified osteoarthritis, unspecified site; I69.351 Hemiplegia and hemiparesis following cerebral infarction affecting right dominant side; Z79.01 Long term (current) use of anticoagulants; Z68.23 Body mass index [BMI] 23.0-23.9, adult; Z95.810 Presence of automatic (implantable) cardiac defibrillator; H02.402 Unspecified ptosis of left eyelid; F05 Delirium due to known physiological condition; N13.9 Obstructive and reflux uropathy, unspecified
CPT/HCPCS: 36415; 70450-TC; 71045-TC; 73130-TC; 80048-TC; 80061-TC; 80076-TC; 81001; 83690-TC; 83735-TC; 84100-TC; 84443-TC; 84484-TC; 85025-TC; 85730-TC; 87081-TC; 92526; 92611-TC; 93307-TC; 97112-TC; 97116-TC; 97530-TC; A4216; C9803; G0378; G0480; J0360; J1650; J1956

== ENCOUNTER 2020-10-13 19:43 | Inpatient (IN) | payer MEDICARE, MEDICAID ==
[~2020-10-13] VITALS: Ht 175.3 cm; Wt 69.9 kg
[~2020-10-13 19:43] MED LIST changes: +AMLO-212 PO; +ASPI-1169 PO; +ATOR40TA PO; -BENA1TAB18 PO; +CARV25TA2 PO; +LOSA50TA39 PO; +Levofloxacin (250MG) PO; -WARF1TAB
--- NOTE | 2020-10-13 20:13 | NUR ---
BIBRA FROM HOME TO ER BED 5. AAOX1. NOT IN RESP DISTRESS, BRETHING EVEN ADN UNLABORED. BED BOUND. BROUGHT IN FOR GENERALIZED WEKANESS. PER EMS REPORT, CALLED PARAMEDICS BECAUSE PT HAS BEEN GETTER WEAKER AND IS UNABLE TO CARE FOR THE PT. UPON ASSESSMENT, PT IS NOTED WITH RECTAL TEMP OF 101.5. NOTED PRODUCTIVE COUGHING. PT IS SATTING @ 98% ON RA. NOTED R SIDED DEFICIT D/T HX OF CVA. MD WAS AT THE BEDSIDE FOR EVAL. ORDERS RECEIVED, NOTED AND CARRIED OUT. IV LINE ESTABLISHED ON L WRIST 20G, BLOOD DRAWN AND GIVEN TO BOBBIN STRIPPER AT BEDSIDE. PT IN MONITOR.
--- NOTE | 2020-10-13 20:20 | NUR ---
SPOKE WITH WITH MATT, PT'S , REGARDING PT. SHE REPORTS THAT PT HAS BEEN WEAK THE ENTIRE DAY AND COULDNT SIT UP STRAIGHT. SHE ALSO REPORTS THAT THE PATIENT HAS BEEN COUGHING FOR THE PAST 3 DAYS. MADE AWARE OF INFORMATION.
[2020-10-13 20:23] LABS: BASOPHILS # (AUTO) 0.1 /CMM (0.0-0.2); BASOPHILS % (AUTO) 1.7 % (0.0-2.0); EOSINOPHILS % (AUTO) 0.2 % (0.0-6.0); HEMATOCRIT 45 % (39-51); LYMPHOCYTES # (AUTO) 0.9 /CMM (0.8-4.8); LYMPHOCYTES % (AUTO) 19.8 % (20.0-44.0); MEAN CORPUSCULAR HGB CONC 33 g/dl (31.0-36.0); MEAN CORPUSCULAR VOLUME 95 fL (80-96); MONOCYTES # (AUTO) 0.4 /CMM (0.1-1.30); MONOCYTES % (AUTO) 8.6 % (2.0-12.0); NEUTROPHILS % (AUTO) 69.7 % (43.0-81.0); PLATELET COUNT (AUTO) 182 /CMM (150-450); RED BLOOD CELL COUNT(AUTO) 4.76 MIL/uL (4.5-6.0); WHITE BLOOD COUNT (AUTO) 4.4 K/uL (4.3-11.0)
[2020-10-13 20:30] LABS: CALCIUM, SERUM 8.7 mg/dL (8.5-10.1); CREATININE 1.5 mg/dL (0.6-1.3)
[2020-10-13 20:47] LABS: ALBUMIN 3.4 g/dL (3.4-5.0); BILIRUBIN,DIRECT 0.3 mg/dL (0.0-0.2); BILIRUBIN,TOTAL 0.6 mg/dL (0.2-1.0); TOTAL PROTEIN, SERUM 7.6 g/dL (6.4-8.2)
--- NOTE | 2020-10-13 21:17 | NUR ---
PT AUTHORIZED HERMAN RIVERA, PT'S SISTER, TO RECIEVE AND GET INFORMATION ON BEHALF OF THE PT.
--- NOTE | 2020-10-13 21:18 | NUR ---
VIVIAL RIVERA: [phone]
--- NOTE | 2020-10-13 21:49 | NUR ---
urine collected via in and out cath wity strict sterile technique observed during the procedure
[2020-10-13 21:53] LABS: BILIRUBIN,URINE Negative (NEGATIVE); BLOOD, URINE Moderate Ery/uL (NEGATIVE); COLOR,URINE YELLOW (YELLOW); LEUKOCYTE ESTERASE ,URINE Negative (NEGATIVE); NITRITE, URINE Negative (NEGATIVE); PH,URINE 5.5 (5.0-8.0); PROTEIN,URINE 30 mg/dl (NEGATIVE); UGLUCOSE Negative (NEGATIVE)
[2020-10-13] MEDS ORDERED: ACETAMINOPHEN ES 500 MG TABLET ONE (21:53)
[2020-10-13 22:05] LABS: WBC,URINE 0-2 /HPF (0-3)
[2020-10-13 22:07] LABS: BACTERIA,URINE Rare /HPF (None Seen); MUCUS,URINE Rare /LPF (None Seen)
[2020-10-13] MEDS ORDERED: ACETAMINOPHEN ES 500 MG TABLET PO ONE (22:30)
[2020-10-13] MEDS ORDERED: AZITHROMYCIN 500 MG in IV D5W 250 ML IV ONE (23:00)
[2020-10-13] MEDS ORDERED: CEFTRIAXONE 1 G in IV D5W 50 ML IV ONE (23:00)
--- NOTE | 2020-10-13 23:10 | NUR ---
PT ASLEEP, VSS.
[2020-10-13] MEDS ORDERED: CEFTRIAXONE 1GM BAG (ER ONLY) 50 ML IV ONE (23:12)
[2020-10-13] MEDS ORDERED: AZITHROMYCIN 500 MG VIAL ONE (23:12)
[2020-10-14] MEDS ORDERED: PANT40TA49 PO (00:41)
[2020-10-14] MEDS ORDERED: CLOP75TA15 PO (00:41)
--- NOTE | 2020-10-14 01:54 | NUR ---
PT PROVIDED WITH MORE BLANKETS.
--- NOTE | 2020-10-14 04:31 | NUR ---
PT ASLEEP, ON MONITOR AND PULSE OX. VSS.
[2020-10-14] MEDS ORDERED: AMLODIPINE BESYLATE 5 MG TABLET PO SCH (09:30)
--- NOTE | 2020-10-14 10:00 | NUR ---
called pharmacy for pts am meds
--- NOTE | 2020-10-14 10:30 | NUR ---
called pharmacy again for pts am meds
[2020-10-14] MEDS: CARVEDILOL 12.5 MG TABLET PO SCH ×2 (11:05→17:19)
[2020-10-14] MEDS: CLOPIDOGREL BISULFATE 75 MG TABLET PO SCH (11:06)
[2020-10-14] MEDS: LOSARTAN POTASSIUM 50 MG TABLET PO SCH ×2 (11:08→17:20)
[2020-10-14] MEDS: ATORVASTATIN 40 MG TABLET PO SCH (11:08)
[2020-10-14] MEDS: ASPIRIN 81 MG TAB.CHEW PO SCH (11:08)
[2020-10-14] MEDS: PANTOPRAZOLE 40 MG TABLET.DR PO SCH (11:08)
[2020-10-14] MEDS: PIPERACILLIN /TAZOBACTAM 3.375 G in IV D5W 50 ML IV SCH ×2 (12:13→18:21)
--- NOTE | 2020-10-14 18:27 | NUR ---
BED 207-1
[2020-10-14] MEDS: NIFEdipine XL (30MG) 30 MG TAB PO SCH (23:33)
--- NOTE | 2020-10-14 23:36 | NUR ---
WILL CALL BACK FOR REPORT.
[2020-10-15] VITALS: BP 163/80
--- NOTE | 2020-10-15 | NUR ---
TELE/RN NOTES RECEIVED REPORT FROM FER SALGUERO, PATIENT GOING TO ROOM 208-1
--- NOTE | 2020-10-15 00:30 | NUR ---
TELE/RN NOTES PATIENT TRANSFERRED TO BED WITH NO INJURIES. PATIENT IS ALERT AND ORIENTED X 1-2. BREATHING IS EVEN AND UNLABORED. NO SIGNS OF SOB OR RESPIRATORY DISTRESS NOTED. PATIENT HAS IV ACCESS ON LEFT WRIST #20G INTACT PATENT FLUSHING WELL. PATIENT UNABLE TO SIGN BELONGINGS LIST. PATIENT V/S BP 163/80 P 89 R 18 O2 96% RA TEMP 101. COOLING MEASURES IN PLACE. SAFETY MEASURES ARE IN PLACE, BED IS LOCKED AND PLACED IN THE LOW POSITION, SIDE RAILS UP X 3, BED ALARM ON. CALL LIGHT IS WITHIN REACH. WILL CONTINUE TO MONITOR.
[2020-10-15] MEDS ORDERED: PIPERACILLIN /TAZOBACTAM 3.375 G VIAL IV ONE ×2 (01:03→04:44)
[2020-10-15] MEDS: PIPERACILLIN /TAZOBACTAM 3.375 G in IV D5W 50 ML IV SCH (01:41)
[2020-10-15] MEDS ORDERED: ACETAMINOPHEN 325 MG TABLET PO PRN (02:30)
[2020-10-15] MEDS ORDERED: ZOLPIDEM TARTRATE 5 MG TABLET PO PRN (02:30)
[2020-10-15] MEDS ORDERED: HYDROCODONE/APAP 5/325MG TABLET PO PRN (02:30)
[2020-10-15 04:00] VITALS: BP 124/76
[2020-10-15] MEDS: DEXAMETHASONE SOD PHOSPHATE 4 MG/ML VIAL IV SCH (05:31)
--- NOTE | 2020-10-15 06:55 | NUR ---
TELE/RN CLOSING NOTES PATIENT IN BED RESTING. PATIENT IS ALERT AND ORIENTED X 1-2. PATIENT IN NO SIGNS OF SOB OR RESPIRATORY DISTRESS NOTED.PATIENT TOLERATING ROOM AIR WELL. NO DISTRESS NOTED. PATIENT HAS LEFT WRIST #20G IV SL. ALL NEEDS HAVE BEEN MET DURING SHIFT. SAFETY MEASURES ARE IN PLACE, BED IS LOCKED AND PLACED IN THE LOW POSITION, SIDE RAILS UP X 3, CALL LIGHT IS WITHIN REACH. WILL ENDORSE CARE TO DAY SHIFT NURSE.
[2020-10-15 07:09] LABS: BASOPHILS % (AUTO) 0.4 % (0.0-2.0); HEMATOCRIT 49 % (39-51); HEMOGLOBIN 16.2 g/dL (13.5-17.5); LYMPHOCYTES # (AUTO) 1.1 /CMM (0.8-4.8); LYMPHOCYTES % (AUTO) 23.4 % (20.0-44.0); MEAN CORPUSCULAR HGB CONC 33 g/dl (31.0-36.0); MEAN CORPUSCULAR VOLUME 94 fL (80-96); MONOCYTES # (AUTO) 0.3 /CMM (0.1-1.30); MONOCYTES % (AUTO) 6.8 % (2.0-12.0); NEUTROPHILS # (AUTO) 3.3 /CMM (1.8-8.9); NEUTROPHILS % (AUTO) 69.4 % (43.0-81.0); PLATELET COUNT (AUTO) 175 /CMM (150-450); RED BLOOD CELL COUNT(AUTO) 5.24 MIL/uL (4.5-6.0); WHITE BLOOD COUNT (AUTO) 4.8 K/uL (4.3-11.0)
[2020-10-15 07:18] LABS: CALCIUM, SERUM 8.4 mg/dL (8.5-10.1); CREATININE 1.4 mg/dL (0.6-1.3); POTASSIUM 3.6 mmol/L (3.5-5.1)
[2020-10-15 07:36] LABS: C-REACTIVE PROTEIN 0.7 mg/dL (0.0-0.9); THYROID STIMULATING HORMONE 1.145 uIU/mL (0.358-3.74)
[2020-10-15] MEDS: ASPIRIN 81 MG TAB.CHEW PO SCH (09:41)
[2020-10-15] MEDS: CLOPIDOGREL BISULFATE 75 MG TABLET PO SCH (09:42)
[2020-10-15] MEDS: ATORVASTATIN 40 MG TABLET PO SCH (09:42)
[2020-10-15] MEDS: LOSARTAN POTASSIUM 50 MG TABLET PO SCH ×2 (09:42→17:38)
[2020-10-15] MEDS: CARVEDILOL 12.5 MG TABLET PO SCH ×2 (09:42→17:38)
[2020-10-15] MEDS: NIFEdipine XL (30MG) 30 MG TAB PO SCH (09:42)
[2020-10-15] MEDS: PANTOPRAZOLE 40 MG TABLET.DR PO SCH (09:43)
--- NOTE | 2020-10-15 18:55 | NUR ---
RN NOTES PATIENT IN BED RESTING NO SOB OR ACUTE DISTRESS NOTED. ALL DUE MEDICATIONS ADMINISTERED. ALL NEEDS MET. NO ACUTE CHANGES NOTED DURING AM SHIFT. WILL ENDORSE CARE TO PM SHIFT.
[2020-10-15 20:00] VITALS: BP 137/87
--- NOTE | 2020-10-15 20:00 | NUR ---
RN OPENING NITE: Patient in bed sleeping comfortably. Patient breathing and unlabored, no SOB or acute respiratory distress noted. Noted IV access on left wrist, 20 gauge, intact and patent. Safety measure in place, bed is in the lowest level, bed is locked, alarm is on, side rails x2 are up, and call light is within reach Will continue to monitor.
[2020-10-16] VITALS: BP 120/67
--- NOTE | 2020-10-16 00:54 | NUR ---
Patient attempted to get up the bed multiple times. Reoriented and educated patient but patient kept attempting to get up. Made MD aware. MD ordered bilateral soft wrist restraints. Read order back and carried out. Will continue to monitor.
--- NOTE | 2020-10-16 01:05 | NUR ---
Patient wanted to get up and smoke. Reoriented patient. Patient verbalized smoking half a pack a day. Made MD aware. MD ordered Nicotine 7mg daily. Read order back and carried out.
--- NOTE | 2020-10-16 03:31 | NUR ---
Discontinued Nicotine patch. Ordered under wrong MD.
--- NOTE | 2020-10-16 03:32 | NUR ---
Discontinued restraint. Ordered under wrong MD.
--- NOTE | 2020-10-16 03:42 | NUR ---
Patient in bed sleeping comfortably. Circulation and skin WNL.
[2020-10-16 04:00] VITALS: BP_SYST 135; BP_SYST 138; BP_DIAS 77
--- NOTE | 2020-10-16 07:33 | NUR ---
Patient attempted to get up and walk. Educated patient on risk for injury in trying to ambulate. Made MD aware. MD ordered bilateral soft wrist restraints. Confirmed order and carried out.
[2020-10-16 07:49] LABS: BASOPHILS % (AUTO) 0.2 % (0.0-2.0); HEMATOCRIT 44 % (39-51); HEMOGLOBIN 14.9 g/dL (13.5-17.5); LYMPHOCYTES # (AUTO) 1.2 /CMM (0.8-4.8); LYMPHOCYTES % (AUTO) 15.1 % (20.0-44.0); MEAN CORPUSCULAR HGB CONC 34 g/dl (31.0-36.0); MEAN CORPUSCULAR VOLUME 94 fL (80-96); MONOCYTES # (AUTO) 0.4 /CMM (0.1-1.30); MONOCYTES % (AUTO) 5.6 % (2.0-12.0); NEUTROPHILS # (AUTO) 6.1 /CMM (1.8-8.9); NEUTROPHILS % (AUTO) 79.1 % (43.0-81.0); PLATELET COUNT (AUTO) 181 /CMM (150-450); RED BLOOD CELL COUNT(AUTO) 4.75 MIL/uL (4.5-6.0); WHITE BLOOD COUNT (AUTO) 7.7 K/uL (4.3-11.0)
[2020-10-16 08:00] VITALS: BP 99/45
--- NOTE | 2020-10-16 08:34 | NUR ---
RN CLOSING NOTE: Patient in bed resting comfortably. Patient breathing even and unlabored, no SOB or acute respiratory distress noted. Safety measure is maintained, bed is in the lowest level, bed is locked, alarm is on, side rails x2 are up, and call light is within reach. Endorsed to morning RN.
[2020-10-16 08:40] LABS: CALCIUM, SERUM 8.2 mg/dL (8.5-10.1); CREATININE 1.5 mg/dL (0.6-1.3)
[2020-10-16] MEDS ORDERED: NICOTINE PATCH (7MG) 7 MG PATCH.TD24 TD SCH (09:00)
--- NOTE | 2020-10-16 09:37 | NUR ---
RN NOTES PATIENT REFUSED PHYSICAL THERAPY.
[2020-10-16] MEDS: PANTOPRAZOLE 40 MG TABLET.DR PO SCH (10:06)
[2020-10-16] MEDS: ASPIRIN 81 MG TAB.CHEW PO SCH (10:06)
[2020-10-16] MEDS: CLOPIDOGREL BISULFATE 75 MG TABLET PO SCH (10:06)
[2020-10-16] MEDS: ATORVASTATIN 40 MG TABLET PO SCH (10:06)
[2020-10-16] MEDS: NIFEdipine XL (30MG) 30 MG TAB PO SCH (10:15)
[2020-10-16] MEDS: LOSARTAN POTASSIUM 50 MG TABLET PO SCH ×2 (10:16→16:44)
[2020-10-16] MEDS: CARVEDILOL 12.5 MG TABLET PO SCH ×2 (10:16→16:44)
--- NOTE | 2020-10-16 10:44 | NUR ---
RN NOTES CALLED PHARMACY STILL AWAITING FOR DECADRON AVAILABILITY.
[2020-10-16] MEDS: DEXAMETHASONE SOD PHOSPHATE 4 MG/ML VIAL IV SCH (10:53)
[2020-10-16 12:00] VITALS: BP 103/78
[2020-10-16 16:00] VITALS: BP 122/83
[2020-10-16] MEDS ORDERED: IV NS 0.9% 1,000 ML IV PRN (17:30)
--- NOTE | 2020-10-16 18:55 | NUR ---
MILL HAND PLATE MILL NOTES PATIENT RESTING COMFORTABLY IN BED, ASLEEP, BUT AROUSABLE TO VERBAL AND TACTILE STIMULI. HOB ELEVATED. DENIES ANY C/O PAIN NOR DISCOMFORT. NO S/S OF RESPIRATORY DISTRESS. LEFT WRIST # 20 INTACT AND PATENT INFUSING NS @ 100ML/HR. BILATERAL WRIST RESTRAINT IN PLACE WITH SKIN CIRCULATION CHECK AND DONE. BED IN LOWEST POSITION ,LOCKED. BED ALARM ON.CALL LIGHT WITHIN REACH. ABLE TO VERBALIZE NEEDS. IN NO APPARENT DISTRESS.
[2020-10-16 20:00] VITALS: BP 127/46
--- NOTE | 2020-10-16 20:07 | NUR ---
RN OPENING NOTE: Patient in bed sleeping comfortably. Patient breathing even and unlabored on room air. No SOB or acute respiratory distress noted. Noted bilateral soft wrist restraints, circulation and skin WNL. IV access noted on left wrist, 20 gauge, patent and intact. Safety measure in place, bed is in the lowest level, bed is locked, alarm is on, side rails are up, and call light is within reach. Will continue to monitor.
[2020-10-17] VITALS: BP 131/75
[2020-10-17 04:00] VITALS: BP 119/72
--- NOTE | 2020-10-17 07:15 | NUR ---
INSTALLER TECHNICIAN NOTES RECEIVED PATIENT RESTING COMFORTABLY IN BED, ASLEEP, BUT AROUSABLE TO VERBAL AND TACTILE STIMULI. HOB ELEVATED. DENIES ANY C/O PAIN NOR DISCOMFORT. ON ROOM AIR WITHOUT S/S OF RESPIRATORY DISTRESS. LEFT WRIST # 20 INTACT AND PATENT INFUSING NS @ 100ML/HR. BILATERAL WRIST RESTRAINT IN PLACE WITH SKIN CIRCULATION CHECK AND DONE. BED IN LOWEST POSITION ,LOCKED. BED ALARM ON.CALL LIGHT WITHIN REACH. ABLE TO VERBALIZE NEEDS.FREQUENT VISUAL CHECK DONE.
--- NOTE | 2020-10-17 07:54 | NUR ---
Assessed patients bilateral extremity for circulation and skin every 2 hours. Circulation and skin are WNL. Ensured patient is hydrated and needs taken care of.
--- NOTE | 2020-10-17 07:56 | NUR ---
RN CLOSING NOTE: Patient resting in bed comfortably. Patient is breathing even and unlabored. No SOB or acute respiratory distress noted. Safety measure maintained; bed is in the lowest level, bed is locked, alarm is on, side rails x2 are up, and call light is within reach. Endorsed to AM nurse.
[2020-10-17 08:00] VITALS: BP 130/81
[2020-10-17] MEDS: PANTOPRAZOLE 40 MG TABLET.DR PO SCH (09:20)
[2020-10-17] MEDS: ASPIRIN 81 MG TAB.CHEW PO SCH (09:21)
[2020-10-17] MEDS: LOSARTAN POTASSIUM 50 MG TABLET PO SCH (09:21)
[2020-10-17] MEDS: CLOPIDOGREL BISULFATE 75 MG TABLET PO SCH (09:22)
[2020-10-17] MEDS: ATORVASTATIN 40 MG TABLET PO SCH (09:22)
[2020-10-17 09:23] VITALS: BP 130/81
[2020-10-17] MEDS: NIFEdipine XL (30MG) 30 MG TAB PO SCH (09:23)
[2020-10-17] MEDS: CARVEDILOL 12.5 MG TABLET PO SCH (09:23)
[2020-10-17] MEDS: DEXAMETHASONE SOD PHOSPHATE 4 MG/ML VIAL IV SCH (09:24)
--- NOTE | 2020-10-17 15:30 | NUR ---
MIGRATORY FARM HAND NOTES PATIENT FOR DISCHARGED. D/C TEACHING/EDUCATION PROVIDED TO ALVARADO OROZCO, PATIENT'S SISTER MATT AND PATIENT. IV ACCES REMOVED WITH CATHETER TIP INTACT WITH GAUZE DRESSING IN PLACE. PATIENT PICKED UP BY BY ALVARADO OROZCO. ALL BELONGINGS ACCOUNTED FOR. LEFT IN STABLE CONDITION.
== END 2020-10-17 15:30 | disposition home health service (06) | DRG 177 ==
LOC: ER 19:43 → OBSER 10-14 05:15 → TELE2 10-14 23:15
PROVIDERS: ADMIT Internal Medicine; ATTEND Internal Medicine
DX: U07.1 COVID-19 (principal); J12.89 Other viral pneumonia; N17.0 Acute kidney failure with tubular necrosis; I69.351 Hemiplegia and hemiparesis following cerebral infarction affecting right dominant side; G40.909 Epilepsy, unspecified, not intractable, without status epilepticus; I25.10 Atherosclerotic heart disease of native coronary artery without angina pectoris; I10 Essential (primary) hypertension; F03.90 Unspecified dementia, unspecified severity, without behavioral disturbance, psychotic disturbance, mood disturbance, and anxiety; F17.210 Nicotine dependence, cigarettes, uncomplicated; Z86.74 Personal history of sudden cardiac arrest
CPT/HCPCS: 36415; 71045-TC; 80048-TC; 80076-TC; 81001; 83605-TC; 84443-TC; 84484-TC; 85025-TC; 85730-TC; 86140-TC; 87040-TC; 87081-TC; 87086-TC; 97116-TC; 97530-TC; C9803; G0378; J0456; J0696; J1100; J2543; J3480; J3490; J7030; J7060; U0003

== ENCOUNTER 2022-04-26 14:30 | Emergency (ER) | payer MEDICARE, OTHER ==
[~2022-04-26] VITALS: Ht 172.7 cm; Wt 64.0 kg
[~2022-04-26 14:30] MED LIST changes: +CLOP75TA15 PO; -Levofloxacin (250MG) PO; +PANT40TA49 PO
--- NOTE | 2022-04-26 14:40 | NUR ---
[id number] FROM HOME FOR BLOOD IN URINE. TO ER BED 6, HOOKED TO MONITOR, CHANGED TO HOSP GOWN, WARM BLANKET PROVIDED. PATIENT AAO x 2. BREATHING EVEN AND UNLABORED. AWAITING MD LOPEZ
--- NOTE | 2022-04-26 14:48 | NUR ---
DR FELIPE AT BEDSIDE
[2022-04-26 15:41] LABS: BASOPHILS % (AUTO) 0.4 % (0.0-2.0); EOSINOPHILS % (AUTO) 1.1 % (0.0-6.0); HEMATOCRIT 43 % (39-51); HEMOGLOBIN 14.1 g/dL (13.5-17.5); LYMPHOCYTES % (AUTO) 42.1 % (20.0-44.0); MEAN CORPUSCULAR HGB CONC 33 g/dl (31.0-36.0); MEAN CORPUSCULAR VOLUME 92 fL (80-96); MONOCYTES # (AUTO) 0.4 K/uL (0.1-1.30); MONOCYTES % (AUTO) 4.9 % (2.0-12.0); NEUTROPHILS # (AUTO) 3.7 K/uL (1.8-8.9); NEUTROPHILS % (AUTO) 51.5 % (43.0-81.0); PLATELET COUNT (AUTO) 53 K/uL (150-450); WHITE BLOOD COUNT (AUTO) 7.2 K/uL (4.3-11.0)
--- NOTE | 2022-04-26 15:51 | NUR ---
HERMAN (SISTER) [phone] MATT (GIRLFRIEND) [phone]. THE PATIENT LIVES WITH MATT.
[2022-04-26 15:59] LABS: CALCIUM, SERUM 8.5 mg/dL (8.5-10.1); CREATININE 1.4 mg/dL (0.6-1.3); POTASSIUM 4.2 mmol/L (3.5-5.1)
[2022-04-26 16:05] LABS: ALBUMIN 3.5 g/dL (3.4-5.0); BILIRUBIN,TOTAL 0.7 mg/dL (0.2-1.0)
[2022-04-26] MEDS ORDERED: IOHEXOL-300 100 ML VIAL IV ONE (16:10)
--- NOTE | 2022-04-26 16:17 | NUR ---
THE PATIENT IS TAKEN TO CT VIA [facility]
[2022-04-26 16:40] LABS: BILIRUBIN,URINE NEGATIVE (NEGATIVE); COLOR,URINE YELLOW (YELLOW); LEUKOCYTE ESTERASE ,URINE SMALL (NEGATIVE); NITRITE, URINE NEGATIVE (NEGATIVE); PH,URINE 5.5 (5.0-8.0); PROTEIN,URINE NEGATIVE (NEGATIVE); UGLUCOSE NEGATIVE (NEGATIVE)
[2022-04-26 16:49] LABS: BACTERIA,URINE 4+ /HPF (None Seen); SQUAMOUS EPITHELIAL CELL,UR Few /HPF (None Seen); WBC,URINE 81-100 /HPF (0-3)
[2022-04-26] MEDS ORDERED: CIPR500T5 PO (17:04)
--- NOTE | 2022-04-26 17:23 | NUR ---
[facility] TRANSPORT ETA 1830 VIA [facility].
--- NOTE | 2022-04-26 18:01 | NUR ---
REPORT GIVEN TO ALBULANCE STAFF
--- NOTE | 2022-04-26 18:02 | NUR ---
Uriel stevenson in ED - 04/26/22 at 1802 by PARVEZ Patient discharged to home in stable condition. Written and verbal after care instructions given. Patient verbalizes understanding of instruction.
--- NOTE | 2022-04-26 18:02 | NUR ---
MATT (GIRLFRIEND) MADE AWARE OF THE PATIENT BEING DISCHARGED.
--- NOTE | 2022-04-26 18:02 | NUR ---
Patient discharged to home in stable condition. Written and verbal after care instructions given. verbalizes understanding of instruction.
--- NOTE | 2022-04-26 18:40 | NUR ---
DR FELIPE MADE AWARE OF BP AND RECEIVED AN ORDER OF LABETALOL 20 MG IV PUSH ONCE. THE ORDER IS READ BACK, VERIFIED. NOTED AND CARRIED OUT.
[2022-04-26] MEDS ORDERED: LABETALOL HCL IV 100MG VIAL ONE (18:42)
[2022-04-26] MEDS ORDERED: LABETALOL HCL IV 100MG VIAL IV ONE ×2 (19:00→19:30)
[2022-04-26] MEDS ORDERED: hydrALAZINE HCL IV 20 MG VIAL ONE (19:26)
[2022-04-26] MEDS ORDERED: hydrALAZINE HCL IV 20 MG VIAL IV ONE (19:30)
--- NOTE | 2022-04-26 20:06 | NUR ---
REPORT GIVEN TO EMS AT BEDSIDE
[2022-04-26 20:09] VITALS: BP 151/80
== END 2022-04-26 20:10 | disposition home or self-care (01) ==
LOC: ER 14:33
DX: N30.80 Other cystitis without hematuria (principal); I10 Essential (primary) hypertension; Z86.69 Personal history of other diseases of the nervous system and sense organs; Z79.899 Other long term (current) drug therapy
CPT/HCPCS: 36415; 74177; 80053; 81001; 85025; 85730; 87086; 96374; 96375; 96376; 99285; J0360; J3490; Q9967; 87186-TC